=== PATIENT | female | born 1940 | race Two or more races ===

== ENCOUNTER 2017-02-25 09:25 | Emergency (ER) | payer OTHER ==
[~2017-02-25] VITALS: Ht 162.6 cm; Wt 62.0 kg
[2017-02-25 09:38] VITALS: BP 228/104; PULSE 83; RESP 16; TEMP 98.9; O2SAT 98
--- NOTE | 2017-02-25 09:38 | PD ---
HPI Chief Complaint: closed head injury Time Seen by Provider: 09:33 Travel History International Travel<30 days: No Contact w/Intl Traveler<30days: No History of Present Illness HPI This is a 76-year-old female who presents to the emergency department having had a mechanical fall during her daily walk. She hit her forehead. She didn't lose consciousness. She is not vomited since the episode. She says she takes 1 baby aspirin a week. She has some mild soreness along the right forehead and some pain in her nose but otherwise no complaints. Patient's symptoms are constant, mild, and she is not complaining of any numbness, weakness or neck pain. [facility] Past Medical History Narrative Medical Hyperlipidemia Has had a partial hysterectomy Social History Alcohol Use: Yes (social) Tobacco Use: No Allergies-Medications (Allergen,Severity, Reaction): Coded Allergies: Wsdzjdc-Ucj-Aht Reductase Inhibitor (Verified Allergy, Severe, Anaphylaxis , 02/25/17) codeine (Verified Adverse Reaction, Unknown, Vomiting, 02/25/17) Review of Systems Except as stated in HPI: all other systems reviewed are Neg Physical Exam Narrative GENERAL:Well appearing, no acute distress SKIN: 1 cm laceration on the medial aspect of the right eyebrow.. HEAD: Large hematoma below the right eyebrow. EYES: Pupils equal and round. No injection or drainage. ENT: Moist mucous membranes NECK: Trachea midline. No cervical spine tenderness. Full painless range of motion of the neck. CARDIOVASCULAR: Regular rate and rhythm. No murmur appreciated. RESPIRATORY: Clear to auscultation. Breath sounds equal bilaterally. GASTROINTESTINAL: Abdomen soft, non-tender, nondistended. MUSCULOSKELETAL: No obvious deformities. NEUROLOGICAL: Awake and alert. No obvious cranial nerve deficits. Moving all extremities. PSYCHIATRIC: Appropriate mood and affect; insight and judgment normal. Data Data Last Documented VS Vital Signs Date Time Temp Pulse Resp B/P (MAP) Pulse Ox O2 Delivery O2 Flow Rate FiO2 02/25/17 09:38 98.9 83 16 228/104 (145) 98 Room Air Orders Orders Ct Brain W/O Iv Contrast(Rout) (02/25/17 ) Ct Facial Bones W/O Iv Cont (02/25/17 ) MDM Medical Decision Making Medical Screen Exam Complete: Yes Emergency Medical Condition: Yes Differential Diagnosis Subarachnoid hemorrhage, subdural hematoma, epidural hematoma, contusion, concussion Narrative Course This is a 76-year-old female who presents to the emergency department having sustained a closed head injury. She takes a baby aspirin once a week. She has a large hematoma on the forehead. CT was obtained which was reassuring with no evidence of intracranial hemorrhage. She has a completely benign cervical spine exam. Patient will be discharged home. Diagnosis Primary Impression: Hematoma of frontal scalp Qualified Codes: S00.03XA - Contusion of scalp, initial encounter Patient Instructions: General Instructions Additional Instructions: If you develop severe worsening headache, persistent vomiting, numbness, weakness, difficulty walking or difficulty talking return to the emergency department immediately. Med/Other Pt SpecificInfo: No Change to Meds Disposition: 01 DISCHARGE HOME Condition: Stable Catarina Morris MD Feb 25, 2017 09:38
--- NOTE | 2017-02-25 10:17 | RADRPT ---
EXAM DATE/TIME: 02/25/2017 09:58 [facility] COMPARISON: No previous studies available for comparison. INDICATIONS : Fall, facial injuries. RADIATION DOSE: 32.67 CTDIvol (mGy) MEDICAL HISTORY : None SURGICAL HISTORY : None. ENCOUNTER: Initial ACUITY: 1 day PAIN SCALE: 4/10 LOCATION: Right cranial TECHNIQUE: Multiple contiguous axial images were obtained of the head. Using automated exposure control and adj ustment of the mA and/or kV according to patient size, radiation dose was kept as low as reasonably a chievable to obtain optimal diagnostic quality images. DICOM format image data is available electro nically for review and comparison. FINDINGS: CEREBRUM: The ventricles are normal for age. No evidence of midline shift, mass lesion, hemorrhage or acute in farction. No extra-axial fluid collections are seen. POSTERIOR FOSSA: The cerebellum and brainstem are intact. The 4th ventricle is midline. The cerebellopontine angle i s unremarkable. EXTRACRANIAL: The visualized portion of the orbits is intact. SKULL: The calvaria is intact. No evidence of skull fracture. A large cephalhematoma over the right frontal region extending into the upper preseptal area CONCLUSION: 1. Large right cephalhematoma over the frontal bone extending inferiorly into the upper preseptal reg ion. 2. No associated fracture or acute intracranial trauma/process. . Thomas Herring MD on February 25, 2017 at 10:09 Board Certified Radiologist. This report was verified electronically.
--- NOTE | 2017-02-25 10:32 | RADRPT ---
EXAM DATE/TIME: 02/25/2017 09:58 [facility] COMPARISON: CT BRAIN W/O CONTRAST, February 25, 2017, 9:58. INDICATIONS : Fall, right supraorbital bruising and hematoma. RADIATION DOSE: 48.78 CTDIvol (mGy) MEDICAL HISTORY : None SURGICAL HISTORY : None. ENCOUNTER: Initial ACUITY: 1 day PAIN SCORE: 5/10 LOCATION: Right facial TECHNIQUE: Volumetric scanning of the facial bones was performed. Using automated exposure control and adjustme nt of the mA and/or kV according to patient size, radiation dose was kept as low as reasonably achiev able to obtain optimal diagnostic quality images. DICOM format image data is available electronicall y for review and comparison. FINDINGS: Right frontal scalp hematoma extending to the supraorbital region. There is mild right preseptal soft tissue swelling. The paranasal sinuses are well aerated. Globes are symmetric. Mastoid air cells are well aerated. No fractures are seen. CONCLUSION: 1. Right frontal scalp/supraorbital scalp hematoma and periorbital swelling without fracture. Bo Fredercik MD on February 25, 2017 at 10:29 Board Certified Radiologist. This report was verified electronically.
[2017-02-25] MEDS ORDERED: NAPROXEN 500 MG TAB PO ONE (10:45)
[2017-02-25 10:53] VITALS: BP 189/82
== END 2017-02-25 11:15 | disposition home or self-care (01) ==
LOC: NEPD 09:25
DX: S00.03XA Contusion of scalp, initial encounter (principal); W19.XXXA Unspecified fall, initial encounter; Y93.01 Activity, walking, marching and hiking
CPT/HCPCS: 70450; 70486; 99285